=== PATIENT | male | born 1995 | race Caucasian/White ===

== ENCOUNTER 2017-09-06 16:50 | Emergency (ER) | payer MEDICAID, OTHER ==
[~2017-09-06] VITALS: Ht 182.9 cm; Wt 120.0 kg
[2017-09-06 16:52] VITALS: BP 150/89; PULSE 104; RESP 14; TEMP 97.9; O2SAT 97
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
[2017-09-06] MEDS ORDERED: METHOCARBAMOL 500 MG TAB PO ONE (19:00)
[2017-09-06] MEDS ORDERED: TETANUS/DIPHTHERIA TOXOID ADULT 0.5 ML VIAL IM ONE (19:00)
[2017-09-06] MEDS ORDERED: IBUPROFEN 600 MG TAB PO ONE (19:00)
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
[2017-09-06] MEDS ORDERED: IBUP-232 PO (20:01)
[2017-09-06] MEDS ORDERED: ROBA750T PO (20:01)
== END 2017-09-06 20:20 | disposition home or self-care (01) ==
LOC: NEPK 16:50
DX: S40.812A Abrasion of left upper arm, initial encounter (principal); V43.53XA Car driver injured in collision with pick-up truck in traffic accident, initial encounter; W22.11XA Striking against or struck by driver side automobile airbag, initial encounter; Z23 Encounter for immunization
CPT/HCPCS: 73030; 73090; 90471; 90714